=== PATIENT | female | born 1960 | race Caucasian/White ===

== ENCOUNTER 2017-04-18 12:50 | Outpatient (CLI) | payer MEDICAID ==
[2017-04-18 14:26] LABS: ALBUMIN/GLOBULIN RATIO 1.5 (1.0-2.2); BILIRUBIN,TOTAL 0.4 mg/dL (0.2-1.0); CALCIUM 9.1 mg/dL (8.5-10.3); CREATININE 0.7 mg/dL (0.4-1.0); POTASSIUM 3.6 mmol/L (3.5-5.0)
[2017-04-23 15:32] LABS: TEST RESULT REPORT (())
== END 2017-04-18 12:51 | disposition home or self-care (01) ==
LOC: LAB.F 12:50 → LAB 12:51
PROVIDERS: ATTEND Nurse Practitioner Family
DX: L40.0 Psoriasis vulgaris (principal)
CPT/HCPCS: 80053; 81599; 86430; 86480; 86803; 87340

== ENCOUNTER 2017-04-22 09:16 | Outpatient (CLI) | payer MEDICAID ==
[2017-04-22 09:38] LABS: BASOPHILS % (AUTO) 0.8 %; EOSINOPHILS # (AUTO) 0.1 10^3/uL (0.0-0.7); EOSINOPHILS % (AUTO) 1.4 %; HCT - HEMATOCRIT 41.5 % (37.0-47.0); LYMPHOCYTES # (AUTO) 1.2 10^3/uL (1.5-3.5); LYMPHOCYTES % (AUTO) 22.4 %; MEAN CORPUSCULAR HEMOGLOBIN 30.6 pg (27.0-31.0); MEAN CORPUSCULAR HGB CONC 33.7 g/dL (32.0-36.0); MEAN PLATELET VOLUME 8.5 fL (7.9-10.8); MONOCYTES # (AUTO) 0.4 10^3/uL (0.0-1.0); MONOCYTES % (AUTO) 6.7 %; NEUTROPHILS # (AUTO) 3.8 10^3/uL (1.5-6.6); NEUTROPHILS % (AUTO) 68.7 %; NUCLEATED RED BLOOD CELLS AUTO 0.1 /100WBC; RED BLOOD COUNT 4.56 10^6/uL (4.20-5.40); RED CELL DISTRIBUTION WIDTH 13.8 % (12.0-15.0); UNCORRECTED WHITE BLOOD COUNT 5.5 x10^3/uL; WHITE BLOOD COUNT 5.5 x10^3/uL (4.8-10.8)
== END 2017-04-22 09:17 | disposition home or self-care (01) ==
LOC: LAB 09:16
PROVIDERS: ATTEND Nurse Practitioner Family
DX: L40.0 Psoriasis vulgaris (principal)
CPT/HCPCS: 85025

== ENCOUNTER 2017-04-28 04:54 | Emergency (ER) | payer MEDICAID ==
[2017-04-28] MEDS ORDERED: KETOROLAC 60 MG/2 ML VIAL IM STA (05:29)
[2017-04-28] MEDS ORDERED: DEXAMETHASONE 10 MG/ML VIAL PO STA (05:29)
[2017-04-28] MEDS ORDERED: CHERRY SYRUP 10 ML UDC PO ONE (05:35)
[2017-04-28] MEDS ORDERED: DEXAMETHASONE 10 MG/ML VIAL ONE (05:35)
[2017-04-28] MEDS ORDERED: KETOROLAC 60 MG/2 ML VIAL ONE (05:35)
--- NOTE | 2017-04-28 05:49 | ED Physician Documentation ---
PD HPI TRUNK INJURY - Stated complaint Stated Complaint: LT RIB,BACK PAIN - Chief complaint Chief Complaint: General - History obtained from History obtained from: Patient, Family - History of Present Illness Location: Posterior chest, Left chest Type of injury: Fall Timing - onset: How many days ago (6) Timing - duration: Days (6) Timing - details: Abrupt onset, Still present, Waxing and waning Quality: Pain, Spasm, Sharp Improved by: Rest, Immobilization, Other (taping with duct tape) Worsened by: Moving, Palpating Associated symtptoms: No: Weakness, Numbness, Tingling, Swelling, Discoloration , Feel faint, Syncope Contributing factors: No: Anticoagulated Where injury occured: Home Similar symptoms before: Has not had sx before Recently seen: Not recently seen - Additional information Additional information: 56-year-old female was up on her bed hanging up a pitcher when she fell and fell onto a speaker landing on the left posterior chest wall. She has had pain in the area since that time and has been using duct tape to tape the chest wall she had some improvement in her pain was beginning to feel some better. She coughed that today and had marked severe pain feeling like something exploded in her back. She comes into the emergency department complaining of left posterior chest wall pain. Review of Systems Constitutional: denies: Fever Eyes: denies: Decreased vision Ears: denies: Ear pain Nose: denies: Congestion Throat: denies: Sore throat Cardiac: reports: Chest pain / pressure. denies: Palpitations Respiratory: reports: Cough. denies: Dyspnea, Wheezing GI: denies: Abdominal Pain, Nausea, Vomiting : denies: Dysuria, Frequency Skin: reports: Rash Musculoskeletal: reports: Back pain. 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 - Present Medications Home Medications: Ambulatory Orders Medication Instructions Recorded Confirmed HYDROcod/ACETAM 5/325 [[place] 5/325] 1 - 2 ea PO Q6H PRN #15 tablet 04/28/17 - Allergies Allergies/Adverse Reactions: Allergies Allergy/AdvReac Type Severity Reaction Status Date / Time citalopram hydrobromide * Allergy Rash Verified 06/16/15 18:35 [From Celexa] Sulfa (Sulfonamide AdvReac Unknown Verified 06/16/15 18:35 Antibiotics) - Social History Does the pt smoke?: Yes Smoking Status: Current every day smoker Does the pt drink ETOH?: Yes Does the pt have substance abuse?: No - Immunizations Immunizations are current?: No PD ED PE NORMAL - Vitals Vital signs reviewed: Yes (hypertension ) - General General: Alert and oriented X 3, Well developed/nourished, Other (appears to be in pain and splinting ) - HEENT HEENT: Atraumatic, PERRL - Neck Neck: Supple, no meningeal sign, No bony TTP - Cardiac Cardiac: RRR, No murmur - Respiratory Respiratory: No respiratory distress, Clear bilaterally, Other (marked point tenderness to the left posterior chest wall ) - Abdomen Abdomen: Soft, Non tender - Back Back: No CVA TTP, No spinal TTP - Derm Derm: Normal color, Warm and dry, No rash - Extremities Extremities: No deformity, No edema - Neuro Neuro: No motor deficit, No sensory deficit, Normal speech - Psych Psych: Normal mood, Normal affect Results - Vitals Vitals: Vital Signs - 24 hr 04/28/17 05:10 Temperature 36.2 C L Heart Rate 56 L Respiratory 20 Rate Blood Pressure 135/99 H O2 Saturation 97 Oxygen O2 Source Room air - Rads (name of study) ribs with PA chest Radiology: Prelim report reviewed (Impression: No acute displaced rib fracture or complication from rib fracture seen.), EMP read indepedently, See rad report PD MEDICAL DECISION MAKING - ED course Complexity details: reviewed old records, reviewed results, re-evaluated patient , considered differential, d/w patient, d/w family ED course: 56-year-old female with left posterior back pain from the rib cage contusion 6 days ago. She has significant pain today and is medicated with Toradol and dexamethasone. She does have adequate relief of her pain with use of the Toradol and chest x-ray is without evidence of rib fracture or pneumothorax. Departure - Departure Disposition: 01 Home, Self Care Clinical Impression: Chest wall contusion Qualifiers: Encounter type: initial encounter Laterality: left Qualified Code(s): S20.212A - Contusion of left front wall of thorax, initial encounter Condition: Stable Instructions: ED Contusion Chest Wall Follow-Up: Blanca Byers ARNP [Primary Care Provider] - Prescriptions: HYDROcod/ACETAM 5/325 [[place] 5/325] 1 - 2 ea PO Q6H PRN #15 tablet PRN Reason: Pain Comments: Today in the Emergency Department your blood pressure was elevated. This can happen from the stress of the visit itself, from a current illness or circumstance or from uncontrolled hypertension. If you take blood pressure medications take your usual mediations, have your blood pressure re-checked in an appropriate setting and follow up any elevation with your primary care doctor.
--- NOTE | 2017-04-28 06:33 | XRAY Preliminary Report ---
Exam: XR Ribs w/PA Chest LT IMPRESSION: No acute displaced rib fracture or complication from rib fracture seen. [facility] SITE ID: [id number]
--- NOTE | 2017-04-28 06:35 | XRAY Report ---
EXAM: LEFT RIB RADIOGRAPHY EXAM DATE: 04/28/2017 06:04 AM. CLINICAL HISTORY: Posterior chest wall contusion. COMPARISON: None. TECHNIQUE: 1 view of the chest and 2 views of the ribs. FINDINGS: Bones: Likely old right ninth lateral rib fracture. No displaced rib fracture seen. Lungs: No focal opacities. No gross pneumothorax or large effusion. Mediastinum: Heart and mediastinal contours are unremarkable. Other: None. IMPRESSION: No acute displaced rib fracture or complication from rib fracture seen. [facility] Referring Provider Line: [phone] SITE ID: [id number]
[2017-04-28 07:08] VITALS: BP 130/81
== END 2017-04-28 07:07 | disposition home or self-care (01) ==
LOC: ED 04:54
DX: S20.212A Contusion of left front wall of thorax, initial encounter (principal); W08.XXXA Fall from other furniture, initial encounter; Y92.013 Bedroom of single-family (private) house as the place of occurrence of the external cause; F17.200 Nicotine dependence, unspecified, uncomplicated
CPT/HCPCS: 71101; 96372; 99283; A9270

== ENCOUNTER 2017-06-16 11:01 | Outpatient (CLI) | payer MEDICAID ==
--- NOTE | 2017-06-17 16:00 | Ultrasound Report ---
THYROID ULTRASOUND: 06/16/2017 CLINICAL INDICATION: Nodule followup. COMPARISON: 04/03/2016. TECHNIQUE: Real-time scanning was performed with abrasives sales representative static images obtained. FINDINGS: The right lobe measures 5.1 x 2.0 x 1.6 cm, and the left lobe measures 5.1 x 1.6 x 1.5 cm. The isthmus measures 2 mm. The nodule in the right lobe now measures 1.6 x 1.4 x 1.3 cm (previously 1.6 x 1.5 x 1.1 cm). A partially cystic nodule is seen in the lower pole of the left lobe measuring 1.3 x 0.9 x 0.8 cm. Other tiny cysts are scattered bilaterally. No adenopathy is appreciated. IMPRESSION: STABLE NODULE IN THE RIGHT LOBE OF THE THYROID. MTDD
== END 2017-06-16 11:02 | disposition home or self-care (01) ==
LOC: DI 11:01
PROVIDERS: ATTEND Nurse Practitioner Family
DX: E04.1 Nontoxic single thyroid nodule (principal)
CPT/HCPCS: 76536

== ENCOUNTER 2017-08-15 18:45 | Outpatient (CLI) | payer MEDICAID | END 2017-08-15 18:46 | disposition EMS.NT | LOC: EMS 18:45 | PROVIDERS: ATTEND Surgery | DX: R51 Headache (principal); Y04.0XXA Assault by unarmed brawl or fight, initial encounter; Y92.019 Unspecified place in single-family (private) house as the place of occurrence of the external cause ==

== ENCOUNTER 2017-08-15 20:16 | Outpatient (CLI) | payer MEDICAID | END 2017-08-15 20:17 | disposition critical access hospital (66) | LOC: EMS 20:16 | PROVIDERS: ATTEND Surgery | DX: R51 Headache (principal); Y04.0XXD Assault by unarmed brawl or fight, subsequent encounter | CPT/HCPCS: A0425; A0429 ==

== ENCOUNTER 2017-08-15 20:41 | Emergency (ER) | payer MEDICAID ==
[2017-08-15 20:56] VITALS: BP 128/83
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
== END 2017-08-16 00:20 | disposition home or self-care (01) ==
LOC: EDUNIT# → ED 20:41
DX: F10.129 Alcohol abuse with intoxication, unspecified (principal); S00.83XA Contusion of other part of head, initial encounter; Y08.89XA Assault by other specified means, initial encounter; Y92.009 Unspecified place in unspecified non-institutional (private) residence as the place of occurrence of the external cause; F17.200 Nicotine dependence, unspecified, uncomplicated
CPT/HCPCS: 99283

== ENCOUNTER 2017-10-24 13:21 | Outpatient (CLI) | payer MEDICAID ==
[2017-10-24 17:45] LABS: BASOPHILS % (AUTO) 0.6 %; EOSINOPHILS # (AUTO) 0.1 10^3/uL (0.0-0.7); EOSINOPHILS % (AUTO) 1.2 %; HGB - HEMOGLOBIN 13.8 g/dL (12.0-16.0); LYMPHOCYTES % (AUTO) 36.2 %; MEAN CORPUSCULAR HEMOGLOBIN 30.3 pg (27.0-31.0); MEAN CORPUSCULAR HGB CONC 33.1 g/dL (32.0-36.0); MEAN CORPUSCULAR VOLUME 91.6 fL (81.0-99.0); MEAN PLATELET VOLUME 8.7 fL (7.9-10.8); MONOCYTES # (AUTO) 0.3 10^3/uL (0.0-1.0); MONOCYTES % (AUTO) 5.8 %; NEUTROPHILS # (AUTO) 3.1 10^3/uL (1.5-6.6); NEUTROPHILS % (AUTO) 56.2 %; PLT - PLATELET COUNT 244 10^3/uL (130-450); RED BLOOD COUNT 4.54 10^6/uL (4.20-5.40); RED CELL DISTRIBUTION WIDTH 12.6 % (12.0-15.0); WHITE BLOOD COUNT 5.5 x10^3/uL (4.8-10.8)
[2017-10-24 18:43] LABS: ALT ALANINE AMINOTRANSFERASE 12 IU/L (10-60); AST ASPARTATE AMINOTRANSFERASE 19 IU/L (10-42)
== END 2017-10-24 13:22 | disposition home or self-care (01) ==
LOC: LAB.F 13:21
PROVIDERS: ATTEND Physician Assistant Medical
DX: L40.0 Psoriasis vulgaris (principal); L40.50 Arthropathic psoriasis, unspecified; Z79.899 Other long term (current) drug therapy
CPT/HCPCS: 36415; 84450; 84460; 85025

== ENCOUNTER 2017-10-27 13:17 | Outpatient (CLI) | payer MEDICAID ==
--- NOTE | 2017-10-28 18:36 | Mammography Report ---
DIGITAL SCREENING MAMMOGRAM: 10/27/2017 CLINICAL INDICATION: A 57-year-old for screening. COMPARISON: 04/2016, 08/2012, 01/2012. TECHNIQUE: Routine CC and MLO projections were obtained of the breasts. FINDINGS: The breasts again demonstrate heterogeneously dense fibroglandular parenchyma bilaterally. Coarse and punctate, typically benign calcifications are present. Intramammary lymph nodes are stable. No suspicious masses, clustered microcalcifications, or regions of architectural distortion are identified. IMPRESSION: BENIGN FINDINGS. RECOMMENDATION: Routine annual screening unless otherwise clinically indicated. BIRADS category: 2, benign findings. STANDARD QUALIFYING STATEMENTS 1. This examination was reviewed with the aid of Computed-Aided Detection (CAD). 2. A negative or benign imaging report should not delay biopsy if clinically suspicious findings are present. Consider surgical consultation if warranted. More than 5% of cancers are not identified by imaging. 3. Dense breasts may obscure an underlying neoplasm. TD: 10/28/2017 18:33
== END 2017-10-27 13:18 | disposition home or self-care (01) ==
LOC: DI 13:17
PROVIDERS: ATTEND Nurse Practitioner Family
DX: Z12.31 Encounter for screening mammogram for malignant neoplasm of breast (principal)
CPT/HCPCS: 77067

== ENCOUNTER 2017-11-07 09:50 | Emergency (ER) | payer MEDICAID ==
[2017-11-07 10:16] VITALS: BP 113/85
[2017-11-07] MEDS ORDERED: LORazepam 2 MG/ML VIAL IVP STA (10:33)
[2017-11-07] MEDS ORDERED: MORPHINE 2 MG/ML CARPUJECT IVP STA (10:33)
--- NOTE | 2017-11-07 10:37 | ED Physician Documentation ---
History of Present Illness - Stated complaint Stated Complaint: FEVER/LOWER BACK PX - Chief complaint Chief Complaint: General - Additonal information Additional information: hx from pt 57 f 2 days s/p colonoscopy with multiple biopsies done at [facility] in [place] last night started having low back and right low abd pain now severe fever at home nausea no real BM since scope Review of Systems Constitutional: denies: Fever, Chills Throat: denies: Sore throat Cardiac: denies: Chest pain / pressure Respiratory: denies: Dyspnea GI: reports: Abdominal Pain, Nausea : denies: Dysuria Musculoskeletal: reports: Back pain Endocrine: denies: Easy bruising / bleeding Immunocompromised: denies: Immunocompromised PD PAST MEDICAL HISTORY - Past Medical History Psych: Depression, Anxiety, Post traumatic stress disorder - Past Surgical History 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 - Present Medications Home Medications: Ambulatory Orders Medication Instructions Recorded Confirmed HYDROcod/ACETAM 5/325 [[place] 5/325] 1 - 2 ea PO Q6H PRN #15 tablet 04/28/17 Oxycodone HCl/Acetaminophen 1 each PO Q6HR PRN #6 tablet 11/07/17 [Percocet 5-325 mg Tablet] - Allergies Allergies/Adverse Reactions: Allergies Allergy/AdvReac Type Severity Reaction Status Date / Time citalopram hydrobromide * Allergy Rash Verified 11/07/17 10:16 [From Celexa] Sulfa (Sulfonamide AdvReac Unknown Verified 11/07/17 10:16 Antibiotics) - Social History Does the pt smoke?: Yes Smoking Status: Current every day smoker Does the pt drink ETOH?: Yes Does the pt have substance abuse?: No - Immunizations Immunizations are current?: No PD ED PE NORMAL - Vitals Vital signs reviewed: Yes - Neck Neck: Supple, no meningeal sign - Cardiac Cardiac: RRR - Respiratory Respiratory: No respiratory distress, Clear bilaterally - Abdomen Abdomen: Other (+ BS vol guarding, difuse TTP RLQ most of all, no pulsatile mass ) - Back Back: No CVA TTP, Other (pt indicate pain is lower than kidneys) - Derm Derm: Normal color Results - Vitals Vitals: Vital Signs - 24 hr 11/07/17 10:10 Temperature 36.9 C Heart Rate 89 Respiratory 18 Rate Blood Pressure 113/85 H O2 Saturation 98 Oxygen O2 Source Room air - Labs Labs: Laboratory Tests 11/07/17 11/07/17 11/07/17 10:30 10:52 10:52 WBC 7.2 RBC 4.67 Hgb 14.3 Hct 42.0 MCV 90.0 MCH 30.6 MCHC 34.0 RDW 12.8 Plt Count 252 MPV 8.4 Neut # 4.4 Lymph # 2.2 Bent # 0.5 Eos # 0.1 Baso # 0.0 Absolute Nucleated RBC 0.00 Nucleated RBC % 0.0 Sodium 139 Potassium 3.9 Chloride 103 Carbon Dioxide 26 Anion Gap 10.0 BUN 13 Creatinine 0.7 Estimated GFR (MDRD) 87 L Glucose 90 Calcium 9.5 Total Bilirubin 0.3 AST 22 ALT 20 Alkaline Phosphatase 82 Total Protein 7.2 Albumin 4.6 Globulin 2.6 Albumin/Globulin Ratio 1.8 Lipase 31 Urine Color YELLOW Urine Clarity CLEAR Urine pH 6.0 Ur Specific [place] 1.025 Urine Protein NEGATIVE Urine Glucose (UA) NEGATIVE Urine Ketones NEGATIVE Urine Occult Blood NEGATIVE Urine Nitrite NEGATIVE Urine Bilirubin NEGATIVE Urine Urobilinogen 0.2 (NORMAL) Ur Leukocyte Esterase NEGATIVE Ur Microscopic Review NOT INDICATED Urine Culture Comments NOT INDICATED - Rads (name of study) CT AP Radiology: See rad report (unremarkable CT AP- no perf, no splenic injury, no FF , no retroperitoneal hematoma/asymmetry, no ureteral stones) PD MEDICAL DECISION MAKING - ED course ED course: CT no perf normal labs no URI feeling better = mostly bloated now called surgery clinic but fly maker advises no staff available right now - so i asked her to relay to surgeon that i had seen his/latasha post op pt and done blood work and CT and all was neg and I was going to dc her and that he/she could me later if desired Departure - Departure Disposition: Home, Self Care Clinical Impression: Status post colonoscopy Condition: Good Instructions: Colonoscopy Prescriptions: Oxycodone HCl/Acetaminophen [Percocet 5-325 mg Tablet] 1 each PO Q6HR PRN #6 tablet PRN Reason: Severe Pain Comments: Thankfully the CT scan looked fine - no perforation or internal bleeding or other acute process was seen. You blood work was fine - normal kidney liver and pancreas function. And your urine showed no sign of infection So I think it is OK for you to go home. Please follow up with your surgeon for a recheck next week. If you are worse over the weekend, please come back to the ER - it is possible for a serious problem to be developing but to have all the work up initially be reassuring, but for a diagnosis not initially apparent to become more clear over time - so if you are worse we would want to see you again I prescribed a few pain pills for you but I would like you to minimize pain medication as that might mask worsening or changing symptoms
[2017-11-07 11:19] LABS: BASOPHILS % (AUTO) 0.6 %; EOSINOPHILS # (AUTO) 0.1 10^3/uL (0.0-0.7); EOSINOPHILS % (AUTO) 1.5 %; HGB - HEMOGLOBIN 14.3 g/dL (12.0-16.0); LYMPHOCYTES # (AUTO) 2.2 10^3/uL (1.5-3.5); LYMPHOCYTES % (AUTO) 29.8 %; MEAN CORPUSCULAR HEMOGLOBIN 30.6 pg (27.0-31.0); MEAN PLATELET VOLUME 8.4 fL (7.9-10.8); MONOCYTES # (AUTO) 0.5 10^3/uL (0.0-1.0); MONOCYTES % (AUTO) 6.7 %; NEUTROPHILS # (AUTO) 4.4 10^3/uL (1.5-6.6); NEUTROPHILS % (AUTO) 61.4 %; PLT - PLATELET COUNT 252 10^3/uL (130-450); RED BLOOD COUNT 4.67 10^6/uL (4.20-5.40); RED CELL DISTRIBUTION WIDTH 12.8 % (12.0-15.0); WHITE BLOOD COUNT 7.2 x10^3/uL (4.8-10.8)
[2017-11-07 11:26] LABS: ALBUMIN 4.6 g/dL (3.2-5.5); ALBUMIN/GLOBULIN RATIO 1.8 (1.0-2.2); BILIRUBIN,TOTAL 0.3 mg/dL (0.2-1.0); CALCIUM 9.5 mg/dL (8.5-10.3); CREATININE 0.7 mg/dL (0.4-1.0); TOTAL PROTEIN 7.2 g/dL (6.7-8.2)
[2017-11-07 11:27] LABS: BILIRUBIN,URINE NEGATIVE (NEGATIVE); GLUCOSE, URINE (UA) NEGATIVE (NEGATIVE); KETONES,URINE (UA) NEGATIVE (NEGATIVE); LEUKOCYTE ESTERASE, URINE NEGATIVE (NEGATIVE); NITRITE,URINE NEGATIVE (NEGATIVE); OCCULT BLOOD,URINE NEGATIVE (NEGATIVE); PROTEIN,URINE NEGATIVE (NEGATIVE); UROBILINOGEN,URINE 0.2 (NORMAL) E.U./dL (NORMAL)
[2017-11-07 11:29] LABS: CLARITY,URINE CLEAR (CLEAR)
--- NOTE | 2017-11-07 11:46 | CT Report ---
EXAM: CT ABDOMEN AND PELVIS EXAM DATE: 11/07/2017 11:20 AM. CLINICAL HISTORY: Low back and right abdominal pain 2 days s/p colonoscopy. COMPARISONS: None. TECHNIQUE: Routine helical CT imaging was performed through the abdomen and pelvis. IV contrast: None . Enteric contrast: No. Reconstructions: Coronal and sagittal. In accordance with CT protocol optimization, one or more of the following dose reduction techniques w ere utilized for this exam: automated exposure control, adjustment of mA and/or KV based on patient s ize, or use of iterative reconstructive technique. FINDINGS: Evaluation limited by lack of IV contrast. Lung Bases: Unremarkable. Liver: Unremarkable noncontrast appearance. Gallbladder/Bile Ducts: Unremarkable. Spleen: Unremarkable. Pancreas: Unremarkable. Adrenal Glands: Unremarkable. Kidneys: No hydronephrosis, calculi, or contour deforming mass. Peritoneal Cavity/Bowel: Unremarkable. No free fluid, free air or adenopathy. No obstruction or acute inflammatory process. The appendix is well visualized and normal. Pelvic Organs: Unremarkable noncontrast appearance. The bladder and visualized pelvic organs are with in normal limits. Vasculature: There is mild atherosclerotic calcification of the abdominal aorta. No aneurysm. Bones: No significant abnormality. Other: None. IMPRESSION: Unremarkable noncontrast CT of the abdomen and pelvis. No acute obstructive or inflammatory abnormali ty. No free air or free fluid. [facility] Referring Provider Line: [phone] SITE ID: [id number]
== END 2017-11-07 13:30 | disposition home or self-care (01) ==
LOC: ED 09:50
DX: M54.5 Low back pain (principal); R14.0 Abdominal distension (gaseous); R10.31 Right lower quadrant pain; Z98.890 Other specified postprocedural states; F17.200 Nicotine dependence, unspecified, uncomplicated
CPT/HCPCS: 36415; 74176; 80053; 81003; 83690; 85025; 96374; 96375; 99283; 99284; J2060; 81001; 87086

== ENCOUNTER 2017-11-28 08:00 | Outpatient (CLI) | payer MEDICAID ==
[2017-11-28 17:41] LABS: BASOPHILS % (AUTO) 0.7 %; EOSINOPHILS # (AUTO) 0.1 10^3/uL (0.0-0.7); EOSINOPHILS % (AUTO) 0.7 %; HGB - HEMOGLOBIN 13.2 g/dL (12.0-16.0); LYMPHOCYTES # (AUTO) 1.7 10^3/uL (1.5-3.5); LYMPHOCYTES % (AUTO) 25.2 %; MEAN CORPUSCULAR HEMOGLOBIN 30.3 pg (27.0-31.0); MEAN CORPUSCULAR HGB CONC 33.4 g/dL (32.0-36.0); MEAN CORPUSCULAR VOLUME 90.8 fL (81.0-99.0); MEAN PLATELET VOLUME 8.7 fL (7.9-10.8); MONOCYTES # (AUTO) 0.3 10^3/uL (0.0-1.0); MONOCYTES % (AUTO) 4.6 %; NEUTROPHILS # (AUTO) 4.7 10^3/uL (1.5-6.6); NEUTROPHILS % (AUTO) 68.8 %; PLT - PLATELET COUNT 256 10^3/uL (130-450); RED BLOOD COUNT 4.35 10^6/uL (4.20-5.40); RED CELL DISTRIBUTION WIDTH 13.3 % (12.0-15.0); WHITE BLOOD COUNT 6.8 x10^3/uL (4.8-10.8)
[2017-11-28 18:01] LABS: ALT ALANINE AMINOTRANSFERASE 22 IU/L (10-60); AST ASPARTATE AMINOTRANSFERASE 23 IU/L (10-42)
== END 2017-11-28 08:01 | disposition home or self-care (01) ==
LOC: LAB.F 08:00
PROVIDERS: ATTEND Physician Assistant Medical
DX: L40.0 Psoriasis vulgaris (principal); L40.50 Arthropathic psoriasis, unspecified; Z79.899 Other long term (current) drug therapy
CPT/HCPCS: 36415; 84450; 84460; 85025

== ENCOUNTER 2017-12-30 07:32 | Outpatient (CLI) | payer MEDICAID ==
[2017-12-30 10:26] LABS: BASOPHILS % (AUTO) 0.4 %; EOSINOPHILS # (AUTO) 0.1 10^3/uL (0.0-0.7); EOSINOPHILS % (AUTO) 2.8 %; HGB - HEMOGLOBIN 13.5 g/dL (12.0-16.0); LYMPHOCYTES # (AUTO) 1.9 10^3/uL (1.5-3.5); LYMPHOCYTES % (AUTO) 36.4 %; MEAN CORPUSCULAR HEMOGLOBIN 30.9 pg (27.0-31.0); MEAN CORPUSCULAR VOLUME 91.1 fL (81.0-99.0); MONOCYTES # (AUTO) 0.4 10^3/uL (0.0-1.0); MONOCYTES % (AUTO) 7.9 %; NEUTROPHILS # (AUTO) 2.7 10^3/uL (1.5-6.6); NEUTROPHILS % (AUTO) 52.5 %; PLT - PLATELET COUNT 243 10^3/uL (130-450); RED BLOOD COUNT 4.35 10^6/uL (4.20-5.40); WHITE BLOOD COUNT 5.1 x10^3/uL (4.8-10.8)
[2017-12-30 10:42] LABS: ALT ALANINE AMINOTRANSFERASE 27 IU/L (10-60); AST ASPARTATE AMINOTRANSFERASE 22 IU/L (10-42)
== END 2017-12-30 07:33 | disposition home or self-care (01) ==
LOC: LAB.F 07:32
PROVIDERS: ATTEND Physician Assistant Medical
DX: L40.0 Psoriasis vulgaris (principal); L40.50 Arthropathic psoriasis, unspecified; Z79.899 Other long term (current) drug therapy
CPT/HCPCS: 36415; 84450; 84460; 85025

== ENCOUNTER 2018-01-27 14:42 | Outpatient (CLI) | payer MEDICAID ==
[2018-01-27 17:31] LABS: BASOPHILS % (AUTO) 0.5 %; EOSINOPHILS # (AUTO) 0.1 10^3/uL (0.0-0.7); EOSINOPHILS % (AUTO) 1.3 %; HGB - HEMOGLOBIN 13.1 g/dL (12.0-16.0); LYMPHOCYTES # (AUTO) 1.9 10^3/uL (1.5-3.5); LYMPHOCYTES % (AUTO) 33.6 %; MEAN CORPUSCULAR HEMOGLOBIN 30.7 pg (27.0-31.0); MEAN CORPUSCULAR HGB CONC 33.2 g/dL (32.0-36.0); MEAN CORPUSCULAR VOLUME 92.3 fL (81.0-99.0); MEAN PLATELET VOLUME 8.7 fL (7.9-10.8); MONOCYTES # (AUTO) 0.5 10^3/uL (0.0-1.0); MONOCYTES % (AUTO) 8.7 %; NEUTROPHILS # (AUTO) 3.2 10^3/uL (1.5-6.6); NEUTROPHILS % (AUTO) 55.9 %; PLT - PLATELET COUNT 247 10^3/uL (130-450); RED BLOOD COUNT 4.27 10^6/uL (4.20-5.40); RED CELL DISTRIBUTION WIDTH 13.1 % (12.0-15.0); WHITE BLOOD COUNT 5.7 x10^3/uL (4.8-10.8)
[2018-01-27 17:42] LABS: ALT ALANINE AMINOTRANSFERASE 11 IU/L (10-60); AST ASPARTATE AMINOTRANSFERASE 17 IU/L (10-42)
== END 2018-01-27 14:43 | disposition home or self-care (01) ==
LOC: LAB.F 14:42
PROVIDERS: ATTEND Physician Assistant Medical
DX: L40.0 Psoriasis vulgaris (principal); L40.50 Arthropathic psoriasis, unspecified; Z79.899 Other long term (current) drug therapy
CPT/HCPCS: 36415; 84450; 84460; 85025

== ENCOUNTER 2018-02-10 09:13 | Outpatient (CLI) | payer MEDICAID ==
--- NOTE | 2018-02-10 13:26 | XRAY Report ---
EXAMS: 1. Right Knee Radiography 2. Left Knee Radiography EXAM DATE:02/10/2018 09:53 AM. CLINICAL HISTORY:PAIN IN LEFT KNEE, CHRONIC. COMPARISON: None. TECHNIQUE: 3 views each. FINDINGS: Right Knee: Bones: Normal. No fractures or bone lesions. Joints: Joint spaces are preserved. No effusion. No subluxations. Soft Tissues: Normal. No soft tissue swelling. Left Knee: Bones: Normal. No fractures or bone lesions. Joints: Joint spaces are preserved. No effusion. No subluxations. Soft Tissues: Normal. No soft tissue swelling. IMPRESSION: Negative bilateral knee radiography. [facility] Referring Provider Line: [phone] SITE ID: [id number]
--- NOTE | 2018-02-11 03:32 | XRAY Report ---
EXAMS: 1. Right Hand Radiography 2. Left Hand Radiography EXAM DATE: 02/10/2018 09:53 AM. CLINICAL HISTORY: Bilateral trigger finger, left trigger thumb COMPARISON: None. TECHNIQUE: 2 views each hand. FINDINGS: Right: Bones: Normal. No fractures or bone lesions. Joints: Normal. No subluxations. Soft Tissues: Normal. No soft tissue swelling. Left: Bones: Normal. No fractures or bone lesions. Joints: Normal. No subluxations. Soft Tissues: Normal. No soft tissue swelling. IMPRESSION: Normal bilateral hand radiography. [facility] Referring Provider Line: [phone] SITE ID: [id number]
== END 2018-02-10 09:14 | disposition home or self-care (01) ==
LOC: DI.S 09:13
PROVIDERS: ATTEND Nurse Practitioner Family
DX: M25.562 Pain in left knee (principal); G89.29 Other chronic pain; M65.312 Trigger thumb, left thumb; M65.30 Trigger finger, unspecified finger

== ENCOUNTER 2018-03-04 15:56 | Outpatient (CLI) | payer MEDICAID ==
--- NOTE | 2018-03-05 08:38 | XRAY Report ---
Procedure Date: 03/04/2018 Accession Number: [id number] / [id number] Procedure: XR - Foot 3 View BILAT CPT Code: FULL RESULT: EXAM: Foot 3 View BILAT DATE: 03/04/2018 4:24 PM CLINICAL HISTORY: ACUTE R HEEL PAIN BALLS OF FEET COMPARISON: None. TECHNIQUE: 3 views each foot. FINDINGS: RIGHT: Bones: Normal. No fractures or bone lesions. Joints: Normal. No subluxations. Soft Tissues: Normal. No soft tissue swelling. LEFT: Bones: Normal. No fractures or bone lesions. Joints: Normal. No subluxations. Soft Tissues: Normal. No soft tissue swelling. IMPRESSION: Normal bilateral feet radiography. [facility]
== END 2018-03-04 15:57 | disposition home or self-care (01) ==
LOC: DI 15:56
PROVIDERS: ATTEND Podiatrist
DX: M79.672 Pain in left foot (principal); M79.671 Pain in right foot

== ENCOUNTER 2018-03-18 07:41 | Outpatient (CLI) | payer MEDICAID ==
[2018-03-18 12:05] LABS: BASOPHILS % (AUTO) 0.6 %; EOSINOPHILS # (AUTO) 0.1 10^3/uL (0.0-0.7); EOSINOPHILS % (AUTO) 2.8 %; HGB - HEMOGLOBIN 14.3 g/dL (12.0-16.0); LYMPHOCYTES # (AUTO) 1.4 10^3/uL (1.5-3.5); LYMPHOCYTES % (AUTO) 30.1 %; MEAN CORPUSCULAR HEMOGLOBIN 31.6 pg (27.0-31.0); MEAN CORPUSCULAR VOLUME 95.8 fL (81.0-99.0); MEAN PLATELET VOLUME 8.9 fL (7.9-10.8); MONOCYTES # (AUTO) 0.5 10^3/uL (0.0-1.0); MONOCYTES % (AUTO) 10.4 %; NEUTROPHILS # (AUTO) 2.6 10^3/uL (1.5-6.6); NEUTROPHILS % (AUTO) 56.1 %; PLT - PLATELET COUNT 247 10^3/uL (130-450); RED BLOOD COUNT 4.51 10^6/uL (4.20-5.40); RED CELL DISTRIBUTION WIDTH 14.1 % (12.0-15.0); WHITE BLOOD COUNT 4.6 x10^3/uL (4.8-10.8)
[2018-03-18 12:23] LABS: ALT ALANINE AMINOTRANSFERASE 15 IU/L (10-60); AST ASPARTATE AMINOTRANSFERASE 20 IU/L (10-42)
== END 2018-03-18 07:42 | disposition home or self-care (01) ==
LOC: LAB.F 07:41
PROVIDERS: ATTEND Physician Assistant Medical
DX: L40.0 Psoriasis vulgaris (principal); L40.50 Arthropathic psoriasis, unspecified; Z79.899 Other long term (current) drug therapy
CPT/HCPCS: 36415; 84450; 84460; 85025

== ENCOUNTER 2018-05-05 13:14 | Outpatient (CLI) | payer MEDICAID ==
[2018-05-05 13:57] LABS: BASOPHILS # (AUTO) 0.1 10^3/uL (0.0-0.1); EOSINOPHILS # (AUTO) 0.1 10^3/uL (0.0-0.7); EOSINOPHILS % (AUTO) 1.4 %; HGB - HEMOGLOBIN 14.6 g/dL (12.0-16.0); LYMPHOCYTES # (AUTO) 1.7 10^3/uL (1.5-3.5); LYMPHOCYTES % (AUTO) 27.1 %; MEAN CORPUSCULAR HEMOGLOBIN 31.7 pg (27.0-31.0); MEAN CORPUSCULAR VOLUME 93.1 fL (81.0-99.0); MEAN PLATELET VOLUME 8.7 fL (7.9-10.8); MONOCYTES # (AUTO) 0.4 10^3/uL (0.0-1.0); MONOCYTES % (AUTO) 6.5 %; NEUTROPHILS # (AUTO) 4.1 10^3/uL (1.5-6.6); PLT - PLATELET COUNT 246 10^3/uL (130-450); RED BLOOD COUNT 4.62 10^6/uL (4.20-5.40); RED CELL DISTRIBUTION WIDTH 13.5 % (12.0-15.0); WHITE BLOOD COUNT 6.4 x10^3/uL (4.8-10.8)
[2018-05-05 14:06] LABS: CREATININE 0.6 mg/dL (0.4-1.0)
== END 2018-05-05 13:15 | disposition home or self-care (01) ==
LOC: LAB 13:14
PROVIDERS: ATTEND Physician Assistant Medical
DX: Z79.899 Other long term (current) drug therapy (principal)
CPT/HCPCS: 36415; 81599; 82565; 84450; 84460; 85025; 86480

== ENCOUNTER 2018-06-23 08:10 | Outpatient (CLI) | payer MEDICAID ==
[2018-06-23 11:33] LABS: ALBUMIN 4.5 g/dL (3.2-5.5); ALBUMIN/GLOBULIN RATIO 1.5 (1.0-2.2); ALKALINE PHOSPHATASE 88 IU/L (42-121); ALT ALANINE AMINOTRANSFERASE 13 IU/L (10-60); AST ASPARTATE AMINOTRANSFERASE 20 IU/L (10-42); BILIRUBIN,TOTAL 0.5 mg/dL (0.2-1.0); BUN - BLOOD UREA NITROGEN 12 mg/dL (6-20); CALCIUM 9.2 mg/dL (8.5-10.3); CARBON DIOXIDE - CO2 27 mmol/L (21-32); CHLORIDE 100 mmol/L (101-111); CREATININE 0.6 mg/dL (0.4-1.0); GFR - MDRD 103 (>89); GLUCOSE 103 mg/dL (70-100); SODIUM 136 mmol/L (135-145); TOTAL PROTEIN 7.6 g/dL (6.7-8.2)
[2018-06-25 13:06] LABS: HSV 1 IGG TYPE SPECIFIC AB <0.90 index
== END 2018-06-23 08:11 | disposition home or self-care (01) ==
LOC: LAB.F 08:10
PROVIDERS: ATTEND Nurse Practitioner Family
DX: F32.9 Major depressive disorder, single episode, unspecified (principal); D34 Benign neoplasm of thyroid gland; Z72.51 High risk heterosexual behavior
CPT/HCPCS: 36415; 80053; 80061; 81599; 83721; 84443; 86592; 86695; 86696; 87491; 87591

== ENCOUNTER 2018-08-02 23:04 | Outpatient (CLI) | payer MEDICAID | END 2018-08-02 23:05 | disposition critical access hospital (66) | LOC: EMS 23:04 | PROVIDERS: ATTEND Surgery | DX: S01.01XA Laceration without foreign body of scalp, initial encounter (principal); W22.8XXA Striking against or struck by other objects, initial encounter; Y92.039 Unspecified place in apartment as the place of occurrence of the external cause | CPT/HCPCS: A0425; A0429; A0999 ==

== ENCOUNTER 2018-08-02 23:27 | Emergency (ER) | payer MEDICAID ==
[2018-08-02 23:36] VITALS: BP 142/93
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
[2018-08-03] MEDS ORDERED: ACETAMINOPHEN 325 MG TABLET PO STA (00:12)
[2018-08-03] MEDS ORDERED: LIDOCAINE MPF 1%-EPI 1:200000 30 ML VIAL SUBQ STA (00:12)
== END 2018-08-03 01:08 | disposition left against medical advice (07) ==
LOC: EDUNIT# → ED 23:27
DX: S01.01XA Laceration without foreign body of scalp, initial encounter (principal); Y08.89XA Assault by other specified means, initial encounter; F10.120 Alcohol abuse with intoxication, uncomplicated; F17.200 Nicotine dependence, unspecified, uncomplicated
CPT/HCPCS: 99282; 99283